=== PATIENT | female | born 1960 | race African-American/Black ===

== ENCOUNTER 2018-01-22 22:23 | Emergency (ER) | payer BC ==
[2018-01-22 22:32] VITALS: BP 105/80; PULSE 84; TEMP 97.6; BMI 27.4
--- NOTE | 2018-01-22 23:21 | PDOC ---
History of Present Illness - General Chief Complaint: Eye Problem Stated Complaint: EYE PROBLEM Time Seen by Provider: 01/22/18 23:02 History Source: Patient - History of Present Illness Initial Comments: 01/22/18 23:16 57 year old female left eye redness since this afternoon, c/o nasal congestion and sinus pain x 3 days. patient denies drainage or pain. no truama/ injury/ vision changes reported. Past History - Past Medical History Allergies/Adverse Reactions: Allergies Allergy/AdvReac Type Severity Reaction Status Date / Time Penicillins Allergy Swelling Verified 08/15/14 20:41 Home Medications: Ambulatory Orders Erythromycin 0.5% Eye Ointment [Erythromycin 0.5% Eye Ointment -] 1 applic OP TID #1 tube 01/22/18 Fluticasone Prop 0.05% Nasal [Flonase -] 1 - 2 spray NS BID #1 spray.pump COPD: No - Surgical History Orthopedic Surgery: Yes (podiatric surgery on left foot) - Immunization History Immunization Up to Date: Yes - Suicide/Smoking/Psychosocial Hx Smoking Status: No Smoking History: Never smoked Have you smoked in the past 12 months: No Number of Cigarettes Smoked Daily: 0 Information on smoking cessation initiated: No Hx Alcohol Use: No Drug/Substance Use Hx: No Substance Use Type: None Review of Systems - Review of Systems Able to Perform ROS?: Yes Is the patient limited Hungarian proficient: No Constitutional: No: Symptoms Reported, See HPI, Chills, Diaphoresis, Fever, Loss of Appetite, Malaise, Night Sweats, Weakness, Weight Stable, Unintentional Wgt. Loss, Unexplained wgt Loss, Other HEENTM: Yes: Nose Congestion, Other (eye redness). No: Symptoms Reported, See HPI, Eye Pain, Blurred Vision, Tearing, Recent change in vision, Double Vision, Cataracts, Ear Pain, Ocular Prothesis, Ear Discharge, Nose Pain, Tinnitus, Nose Bleeding, Hearing Loss, Throat Pain, Throat Swelling, Mouth Pain, Dental Problems, Difficulty Swallowing, Mouth Swelling Respiratory: Yes: Cough. No: Symptoms reported, See HPI, Orthopnea, Shortness of Breath, SOB with Exertion, SOB at Rest, Stridor, Wheezing, Productive cough, Hemoptysis, Other *Physical Exam - Vital Signs Last Vital Signs Temp Pulse Resp BP Pulse Ox 97.6 F 84 16 105/80 100 01/22/18 22:28 01/22/18 22:28 01/22/18 22:28 01/22/18 22:28 01/22/18 22:28 - Physical Exam General Appearance: Yes: Appropriately Dressed HEENT: positive: Normal ENT Inspection, Rhinorrhea, Other (left conjunctival erythema. no matted eyes. ) Neck: negative: Tender, Trachea midline, Normal Thyroid, Rigid, Supple, Carotid bruit, Decreased range of motion, Stridor, Lymphadenopathy (R), Lymphadenopathy (L), Rigidity, Tender lateral, Tender midline, Thyromegaly, Other Respiratory/Chest: positive: Lungs Clear, Normal Breath Sounds Progress Note - Progress Note Progress Note: A: conjuctivitis allergic vs bacterial P: will cover with erythromycin ointment. flonase *DC/Admit/Observation/Transfer Diagnosis at time of Disposition: Conjunctivitis Qualifiers: Conjunctivitis type: acute Acute conjunctivitis type: bacterial Laterality: left Qualified Code(s): H10.32 - Unspecified acute conjunctivitis, left eye - Discharge Dispostion Disposition: HOME - Prescriptions Prescriptions: Erythromycin 0.5% Eye Ointment [Erythromycin 0.5% Eye Ointment -] 1 applic OP TID #1 tube Fluticasone Prop 0.05% Nasal [Flonase -] 1 - 2 spray NS BID #1 spray.pump - Referrals Referrals: Pietro Page MD [Primary Care Provider] - - Patient Instructions Printed Discharge Instructions: Conjunctivitis Additional Instructions: strict hand washing. apply eye ointment as prescribed. continue flonase as prescribed. follow up with your doctor as soon as possible. - Post Discharge Activity Forms/Work/School Notes: Back to Work
--- NOTE | 2018-01-22 23:25 | PDOC ---
*Physical Exam - Vital Signs Last Vital Signs Temp Pulse Resp BP Pulse Ox 97.6 F 84 16 105/80 100 01/22/18 22:28 01/22/18 22:28 01/22/18 22:28 01/22/18 22:28 01/22/18 22:28 Medical Decision Making - Medical Decision Making 01/22/18 23:25 agree with care from CRYSTAL Tierney *DC/Admit/Observation/Transfer Diagnosis at time of Disposition: Conjunctivitis - Discharge Dispostion Disposition: HOME - Prescriptions Prescriptions: Erythromycin 0.5% Eye Ointment [Erythromycin 0.5% Eye Ointment -] 1 applic OP TID #1 tube Fluticasone Prop 0.05% Nasal [Flonase -] 1 - 2 spray NS BID #1 spray.pump Tobramycin 0.3% Ophth Soln [Tobrex] 5 ml OP Q4H #1 ml - Referrals Referrals: Pietro Page MD [Primary Care Provider] - - Patient Instructions Printed Discharge Instructions: Conjunctivitis Additional Instructions: strict hand washing. apply eye ointment as prescribed. continue flonase as prescribed. follow up with your doctor as soon as possible. - Post Discharge Activity Forms/Work/School Notes: Back to Work
== END 2018-01-23 00:06 | disposition home or self-care (01) ==
LOC: JER 22:23
DX: H10.32 Unspecified acute conjunctivitis, left eye (principal)
CPT/HCPCS: 99281-25

== ENCOUNTER 2019-07-02 12:02 | Emergency (ER) | payer BC, OTHER ==
[2019-07-02 12:53] VITALS: BP 123/58; PULSE 70; TEMP 98.5; BMI 27.2
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
== END 2019-07-02 13:36 | disposition home or self-care (01) ==
LOC: JERFT 12:02
DX: S13.4XXA Sprain of ligaments of cervical spine, initial encounter (principal); V43.52XA Car driver injured in collision with other type car in traffic accident, initial encounter; Y93.89 Activity, other specified; Y92.410 Unspecified street and highway as the place of occurrence of the external cause
CPT/HCPCS: 99282-25

== ENCOUNTER 2019-08-25 11:45 | Emergency (ER) | payer BC ==
[2019-08-25 12:23] VITALS: BP 129/74; PULSE 100; TEMP 99.1; BMI 27.4
--- NOTE | 2019-08-25 14:31 | PDOC ---
History of Present Illness - General Chief Complaint: Cold Symptoms Stated Complaint: CHEST TIGHTNESS Time Seen by Provider: 08/25/19 12:52 - History of Present Illness Initial Comments: 08/25/19 14:29 59-year-old female without comorbidities presents for evaluation of allergic symptoms runny nose and cough x2 weeks without systemic symptoms Past History - Past Medical History Allergies/Adverse Reactions: Allergies Allergy/AdvReac Type Severity Reaction Status Date / Time No Known Allergies Allergy Verified 08/25/19 12:24 Home Medications: Ambulatory Orders Erythromycin 0.5% Eye Ointment [Erythromycin 0.5% Eye Ointment -] 1 applic OP TID #1 tube 01/22/18 Fluticasone Prop 0.05% Nasal [Flonase -] 1 - 2 spray NS BID #1 spray.pump Acetaminophen [Tylenol] 650 mg PO PRN 01/23/18 Tobramycin 0.3% Ophth Soln [Tobrex] 5 ml OP Q4H #1 ml 01/23/18 Cyclobenzaprine HCl 10 mg PO Q8H PRN #14 tablet 07/02/19 Naproxen [Naprosyn -] 500 mg PO BID #30 tablet 07/02/19 Cetirizine HCl/Pseudoephedrine [Zyrtec-D Tablet] 1 each PO DAILY #30 tab.er.12h 08/25/19 COPD: No - Surgical History Orthopedic Surgery: Yes (podiatric surgery on left foot) - Immunization History Immunization Up to Date: Yes - Psycho Social/Smoking Cessation Hx Smoking Status: No Smoking History: Never smoked Have you smoked in the past 12 months: No Number of Cigarettes Smoked Daily: 0 Hx Alcohol Use: No Drug/Substance Use Hx: No Substance Use Type: None Review of Systems - Review of Systems Constitutional: No: Fever HEENTM: Yes: Nose Congestion Respiratory: No: Cough *Physical Exam - Vital Signs Last Vital Signs Temp Pulse Resp BP Pulse Ox 99.1 F 100 H 18 129/74 100 08/25/19 12:21 08/25/19 12:21 08/25/19 12:21 08/25/19 12:21 08/25/19 12:21 - Physical Exam Comments: 08/25/19 14:29 HEAD: NC/AT EYES: Conjuntiva clear Ears: Canals and TM's normal NOSE: No d/c THROAT: Moist mucous membrances, oral pharanx clear, uvula midline NECK: Supple without adenopathy CARDIAC: S1 S2 LUNGS: CTA Full and Equal breath sounds ABDOMEN: Soft NT ND MS: Full ROM in all joints without edema NEUROLOGIC: No gross sensory or motor deficits, NVID SKIN: Normal color and temperature no lesions or rashes ED Treatment Course - RADIOLOGY Radiology Studies Ordered: Category Date Time Status CHEST PA & LAT [RAD] Stat Radiology 08/25/19 12:53 Completed Medical Decision Making - Medical Decision Making 08/25/19 14:29 Patient gets minimal relief from steroidal nasal spray she takes cough drops she is requesting an oral antihistamine with decongestant she gets this yearly and she feels this is similar to the symptoms she is had in the past which was relieved by oral antihistamine with decongestant 08/25/19 14:30 Chest x-ray and EKG were normal Discharge - Discharge Information Problems reviewed: Yes Clinical Impression/Diagnosis: Seasonal allergies Condition: Stable Disposition: HOME - Admission No - Follow up/Referral Referrals: Pietro Page MD [Primary Care Provider] - - Patient Discharge Instructions Additional Instructions: Please continue your regular medication as directed return to the emergency room for worsening symptoms and without fail in 2 to 3 days please follow-up with your primary care physician - Post Discharge Activity
--- NOTE | 2019-08-29 20:23 | EKG ---
Test Reason : Blood Pressure : / mmHG Vent. Rate : 100 BPM Atrial Rate : 100 BPM P-R Int : 176 ms QRS Dur : 080 ms QT Int : 332 ms P-R-T Axes : 069 065 049 degrees QTc Int : 428 ms NORMAL SINUS RHYTHM NORMAL ECG NO PREVIOUS ECGS AVAILABLE Confirmed by MD TONY, ORTEGA ([id number]) on 08/29/2019 8:23:05 PM Referred By: Confirmed By:ORTEGA JIMENEZ MD
== END 2019-08-25 14:37 | disposition home or self-care (01) ==
LOC: JERFT 11:45
DX: J30.2 Other seasonal allergic rhinitis (principal)
CPT/HCPCS: 71046-TC-FY; 93005; 93010; 99281-25

== ENCOUNTER 2021-07-07 04:40 | Day surgery (SDC) | payer BC ==
[2021-07-05 11:49] VITALS: BMI 29.5
[2021-07-07 08:34] VITALS: TEMP 97.8
[2021-07-07 08:53] VITALS: BP 104/73
[2021-07-07 12:08] VITALS: PULSE 85
== END 2021-07-07 10:00 | disposition home or self-care (01) ==
LOC: JASU-ENDO 04:40
PROVIDERS: ATTEND Internal Medicine Gastroenterology
PROC: 0DBL8ZX Excision of Transverse Colon, Via Natural or Artificial Opening Endoscopic, Diagnostic (ICD-10-PCS; 2021-07-07)
PROC: 0DBP8ZX Excision of Rectum, Via Natural or Artificial Opening Endoscopic, Diagnostic (ICD-10-PCS; principal; 2021-07-07 08:00)
DX: Z12.11 Encounter for screening for malignant neoplasm of colon (principal); D12.3 Benign neoplasm of transverse colon; K62.1 Rectal polyp; Z86.010 Personal history of colon polyps; Z80.0 Family history of malignant neoplasm of digestive organs; K63.89 Other specified diseases of intestine; K59.89 Other specified functional intestinal disorders

== ENCOUNTER 2022-12-08 16:24 | Emergency (ER) | payer BC ==
[2022-12-08 16:43] VITALS: BP 114/76; PULSE 73; RESP 18; TEMP 97.4; BMI 27.1
[2022-12-08 18:28] LABS: URINE APPEARANCE CLEAR; URINE BILIRUBIN NEGATIVE (NEGATIVE); URINE COLOR YELLOW; URINE GLUCOSE (UA) NEGATIVE (NEGATIVE); URINE KETONE NEGATIVE (NEGATIVE); URINE LEUK ESTERASE NEGATIVE (NEGATIVE); URINE NITRITE NEGATIVE (NEGATIVE); URINE PROTEIN NEGATIVE (NEGATIVE); URINE UROBILINOGEN 0.2 mg/dL (0.2-1.0)
== END 2022-12-08 18:46 | disposition home or self-care (01) ==
LOC: JER 16:24
DX: R35.0 Frequency of micturition (principal); M54.50 Low back pain, unspecified
CPT/HCPCS: 81003; 87077; 87086; 99283-25